=== PATIENT | female | born 1950 | race Two or more races ===

== ENCOUNTER 2019-07-16 11:05 | Outpatient (CLI) | payer OTHER | END 2019-07-16 11:07 | disposition home or self-care (01) | LOC: SONOGRAMA 11:05 → MAMO-SONO 11:15 | DX: N28.1 Cyst of kidney, acquired (principal) ==

== ENCOUNTER 2023-09-17 12:12 | Outpatient (CLI) | payer OTHER | END 2023-09-17 12:16 | disposition home or self-care (01) | LOC: RAD 12:12 | PROVIDERS: ATTEND Orthopaedic Surgery | DX: M25.512 Pain in left shoulder (principal) ==

== ENCOUNTER → 2023-09-30 | Outpatient (CLI) | payer OTHER | END | disposition home or self-care (01) | LOC: RAD 10:18 | PROVIDERS: ATTEND Orthopaedic Surgery | DX: M25.561 Pain in right knee (principal); M25.562 Pain in left knee; M54.2 Cervicalgia; M24.561 Contracture, right knee; Z96.651 Presence of right artificial knee joint ==

== ENCOUNTER → 2023-10-14 11:47 | Outpatient (CLI) | payer OTHER | END | disposition home or self-care (01) | LOC: NUCLEAR 11:47 | PROVIDERS: ATTEND Orthopaedic Surgery | DX: M81.0 Age-related osteoporosis without current pathological fracture (principal) ==

== ENCOUNTER 2024-01-30 09:58 | Outpatient (CLI) | payer OTHER | END 2024-01-30 10:03 | disposition home or self-care (01) | LOC: RAD 09:58 | PROVIDERS: ATTEND Orthopaedic Surgery | DX: M25.561 Pain in right knee (principal); Z96.651 Presence of right artificial knee joint ==

== ENCOUNTER 2024-04-01 11:45 | Outpatient (CLI) | payer OTHER | END 2024-04-01 11:51 | disposition home or self-care (01) | LOC: RAD 11:45 | PROVIDERS: ATTEND Orthopaedic Surgery | DX: M25.561 Pain in right knee (principal); Z96.651 Presence of right artificial knee joint ==

== ENCOUNTER 2024-10-11 07:38 | Outpatient (CLI) | payer OTHER | END 2024-10-11 07:39 | disposition home or self-care (01) | LOC: NUCLEAR 07:38 | PROVIDERS: ATTEND Internal Medicine | DX: I20.9 Angina pectoris, unspecified (principal) | CPT/HCPCS: 78452; 93017; A9500 ==

== ENCOUNTER 2024-12-22 11:31 | Outpatient (CLI) | payer OTHER | END 2024-12-22 11:35 | disposition home or self-care (01) | LOC: RAD 11:31 | PROVIDERS: ATTEND Orthopaedic Surgery | DX: M79.642 Pain in left hand (principal) ==

== ENCOUNTER → 2024-12-31 08:44 | Outpatient (CLI) | payer OTHER ==
[2024-12-31 09:31] LABS: EOS # 0.43 (0.04-0.54); HEMATOCRIT 40.2 % (34.1-44.9); HEMOGLOBIN 13.2 g/dL (11.2-15.7); LYMPH # 2.11 (1.18-3.74); LYMPH % 29.4 % (19.3-53.1); MEAN CORPUSCULAR HEMOGLOBIN 28.5 pg (25.6-32.2); MONO # 0.72 (0.24-0.82); NEUT # 3.83 (1.56-6.13); NEUT % 53.5 % (34.0-71.1); PLATELET COUNT 279 K/uL (163-369); RED BLOOD COUNT 4.63 M/uL (3.93-5.22); RED CELL DISTRIBUTION WIDTH 13.3 % (11.6-14.4)
[2024-12-31 09:37] LABS: URINE APPEARANCE Clear; URINE BILIRRUBIN Negative (NEGATIVE); URINE BLOOD Negative; URINE COLOR Yellow; URINE GLUCOSE Negative (NEGATIVE); URINE KETONE Trace (NEGATIVE); URINE LEUKOCYTE Trace; URINE NITRATE Negative; URINE PROTEIN Trace (NEGATIVE); URINE UROBILINOGEN 0.2 E.U./dl
[2024-12-31 09:38] LABS: URINE BACTERIA 35.4 uL (0.0-1933); URINE EPITHELIAL CELLS 6.3 uL (0.0-38.8); URINE RBC 4.2 uL (0.0-20.8); URINE WBC 22.4 uL (0.0-23.2)
[2024-12-31 09:39] LABS: URINE CAST 0.88 uL (0.0-1.40)
[2024-12-31 09:46] LABS: INR 1.05; PARTIAL THROMBOPLASTIN TIME 25.9 SECONDS (22.0-34.0); PROTHROMBIN TIME 11.4 SECONDS (9.0-11.5)
[2024-12-31 09:53] LABS: COL EPI 108 SECONDS (82-175)
[2024-12-31 10:40] LABS: ALBUMIN 3.8 gm/dL (3.4-5.0); BILIRUBIN TOTAL 0.42 mg/dL (0.3-1.2); CALCIUM 9.4 mg/dL (8.5-10.1); CREATININE SERUM 1.24 mg/dL (0.55-1.02); GFR 42.28; GLOBULINA 3.8 G/DL (2.4-3.5); POTASSIUM 4.31 mEq/L (3.5-5.1); TOTAL PROTEIN 7.6 gm/dL (6.4-8.2)
== END | disposition home or self-care (01) ==
LOC: RAD 08:44
PROVIDERS: ATTEND Orthopaedic Surgery
DX: D64.9 Anemia, unspecified (principal); E88.9 Metabolic disorder, unspecified; D68.8 Other specified coagulation defects; N39.0 Urinary tract infection, site not specified; Z22.322 Carrier or suspected carrier of Methicillin resistant Staphylococcus aureus; E11.8 Type 2 diabetes mellitus with unspecified complications; I10 Essential (primary) hypertension; Z76.89 Persons encountering health services in other specified circumstances

== ENCOUNTER 2024-12-31 10:43 | Outpatient (CLI) | payer OTHER | END 2024-12-31 10:47 | disposition home or self-care (01) | LOC: RAD 10:43 | PROVIDERS: ATTEND Orthopaedic Surgery | DX: M79.651 Pain in right thigh (principal); M79.604 Pain in right leg ==

== ENCOUNTER 2025-04-01 08:02 | Outpatient (CLI) | payer OTHER ==
[2025-04-01 08:52] LABS: BASO % 0.9 % (0.1-1.2); EOS # 0.21 (0.04-0.54); EOS % 2.6 % (0.7-7.0); LYMPH # 1.88 (1.18-3.74); LYMPH % 23.6 % (19.3-53.1); MEAN PLATELET VOLUME 11.50 fl (9.4-12.4); MONO # 0.77 (0.24-0.82); MONO % 9.7 % (4.7-12.5); NEUT # 5.02 (1.56-6.13); NEUT % 63.1 % (34.0-71.1); RED CELL DISTRIBUTION WIDTH 14.3 % (11.6-14.4)
[2025-04-01 09:11] LABS: URINE APPEARANCE Cloudy; URINE BILIRRUBIN Negative (NEGATIVE); URINE BLOOD Trace; URINE COLOR Yellow; URINE KETONE Negative (NEGATIVE); URINE LEUKOCYTE Moderate; URINE NITRATE Negative; URINE PROTEIN Negative (NEGATIVE); URINE UROBILINOGEN 0.2 E.U./dl
[2025-04-01 09:13] LABS: URINE EPITHELIAL CELLS 1.8 uL (0.0-38.8); URINE RBC 7.7 uL (0.0-20.8); URINE WBC 1394.1 uL (0.0-23.2)
[2025-04-01 09:14] LABS: INR 1.03
[2025-04-01 09:31] LABS: URINE BACTERIA > 9821.5 uL (0.0-1933); URINE CAST 0.14 uL (0.0-1.40); URINE GLUCOSE >=1000 MG/DL (NEGATIVE)
[2025-04-01 09:36] LABS: ALT/SGPT 21.0 U/L (12-78); AST/SGOT 16.0 U/L (15-37); BILIRUBIN TOTAL 0.44 mg/dL (0.3-1.2); BUN CREA RATIO 17.0 (7.0-25.0); CREATININE SERUM 1.38 mg/dL (0.55-1.02); GFR 37.37; GLOBULINA 3.3 G/DL (2.4-3.5); GLUCOSE FASTING 134.0 mg/dL (65-100); OSMOLALITY SERUM 289.0 MOSM/KG (275-295)
[2025-04-01 09:37] LABS: COL EPI 90 SECONDS (82-175)
== END 2025-04-01 08:03 | disposition home or self-care (01) ==
LOC: RAD 08:02
PROVIDERS: ATTEND Orthopaedic Surgery
DX: D64.9 Anemia, unspecified (principal); E88.89 Other specified metabolic disorders; D68.8 Other specified coagulation defects; N39.0 Urinary tract infection, site not specified; Z22.322 Carrier or suspected carrier of Methicillin resistant Staphylococcus aureus; E11.9 Type 2 diabetes mellitus without complications; I10 Essential (primary) hypertension; Z76.89 Persons encountering health services in other specified circumstances

== ENCOUNTER 2025-04-21 09:30 | Inpatient (IN) | payer OTHER ==
[~2025-04-21] VITALS: Ht 91.4 cm; Wt 90.7 kg
[2025-04-21] MEDS ORDERED: LANTUS SOL100 UNIT/1 (11:56)
[2025-04-21] MEDS ORDERED: HORIZANT300 MG PO (11:57)
[2025-04-21] MEDS ORDERED: GLIMEPIRIDE2 MG (11:57)
[2025-04-21] MEDS ORDERED: ZESTRIL40 M1 PO (11:57)
[2025-04-21] MEDS ORDERED: XARELTO20 MG (11:58)
[2025-04-21] MEDS ORDERED: ACID REDUCER20 M1 PO (11:59)
[2025-04-21] MEDS ORDERED: SYNTHROID50 MCG PO (11:59)
[2025-04-21] MEDS ORDERED: PRAMIPEXOLE E2.25 MG (12:00)
[2025-04-25] MEDS ORDERED: BUPIVACAINE HCL/MPF 0.5% 30ML VIAL ONE ×2 (06:44→14:05)
[2025-04-25] MEDS ORDERED: ISOPROPYL ALCOHOL 30 ML OUNCE TOP ONE (06:44)
[2025-04-25] MEDS ORDERED: KETOROLAC TROMETHAMINE 60 MG VIAL IM ONE (06:44)
[2025-04-25] MEDS ORDERED: LIDOCAINE HCL 1%/EPINEPHRINE 20ML VIAL IJ ONE (06:44)
[2025-04-25] MEDS ORDERED: VANCOMYCIN HCL 1,000 MG VIAL ONE (06:44)
[2025-04-25] MEDS ORDERED: CEFOXITIN SODIUM 2,000 MG VIAL IV ONE (07:06)
[2025-04-25] MEDS ORDERED: TRANEXAMIC ACID 100MG/1ML (1000MG) AMPUL ONE (07:06)
[2025-04-25] MEDS ORDERED: MORPHINE SULFATE 4 MG/ML CARTRIDGE IV ONE (08:15)
[2025-04-25] MEDS ORDERED: FAMOTIDINE/PF 20 MG/2 ML VIAL ONE (12:28)
[2025-04-25] MEDS ORDERED: PANTOPRAZOLE SODIUM 40 MG TABLET.DR PO SCH (16:51)
[2025-04-25] MEDS ORDERED: ONDANSETRON HCL 2 MG/ML VIAL IV PRN (17:00)
[2025-04-25] MEDS ORDERED: TRAMADOL HCL 50 MG TABLET PO PRN (17:00)
[2025-04-25] MEDS ORDERED: CELECOXIB 200 MG CAPSULE PO SCH (17:00)
[2025-04-25] MEDS ORDERED: ONDANSETRON 4 MG TAB.RAPDIS PO PRN (17:00)
[2025-04-25] MEDS ORDERED: PROMETHAZINE HCL 50 MG/ML AMPUL IM PRN (17:00)
[2025-04-25] MEDS ORDERED: ACETAMINOPHEN 325 MG TABLET PO SCH (17:00)
[2025-04-25] MEDS ORDERED: SODIUM CHLORIDE 0.45 % 1,000 ML IV SCH (17:00)
[2025-04-25] MEDS ORDERED: CEFAZOLIN SODIUM 1,000 MG VIAL IV SCH (17:00)
[2025-04-25] MEDS ORDERED: CEFAZOLIN SODIUM 1,000 MG VIAL ONE (17:18)
[2025-04-25 19:25] VITALS: BP 122/71; O2SAT 96
[2025-04-25] MEDS ORDERED: KETOROLAC TROMETHAMINE 10 MG TABLET PO SCH (21:00)
[2025-04-26 06:26] LABS: BASO % 0.3 % (0.1-1.2); EOS # 0.32 (0.04-0.54); EOS % 2.8 % (0.7-7.0); LYMPH # 1.41 (1.18-3.74); LYMPH % 12.3 % (19.3-53.1); MEAN PLATELET VOLUME 11.70 fl (9.4-12.4); MONO # 1.04 (0.24-0.82); MONO % 9.0 % (4.7-12.5); NEUT # 8.66 (1.56-6.13); NEUT % 75.3 % (34.0-71.1); RED CELL DISTRIBUTION WIDTH 14.1 % (11.6-14.4)
[2025-04-26] MEDS ORDERED: RIVAROXABAN 10 MG TAB PO SCH (09:00)
[2025-04-26 09:39] VITALS: BP 87/52; O2SAT 97
[2025-04-26 10:12] VITALS: BP 89/53; O2SAT 96
[2025-04-26] MEDS ORDERED: 0.9 % SODIUM CHLORIDE 1,000 ML IV SCH (12:00)
[2025-04-26] MEDS ORDERED: MIDODRINE HCL 5 MG TABLET PO STA (14:00)
[2025-04-26] MEDS ORDERED: PATIENTS OWN MEDICATION (MEDICAMENTO EN PISO) IV ONE (15:00)
[2025-04-26 15:20] LABS: BASO % 0.3 % (0.1-1.2); EOS # 0.41 (0.04-0.54); EOS % 3.7 % (0.7-7.0); LYMPH # 1.26 (1.18-3.74); LYMPH % 11.3 % (19.3-53.1); MEAN PLATELET VOLUME 11.80 fl (9.4-12.4); MONO # 0.85 (0.24-0.82); MONO % 7.7 % (4.7-12.5); NEUT # 8.52 (1.56-6.13); NEUT % 76.6 % (34.0-71.1); RED CELL DISTRIBUTION WIDTH 14.1 % (11.6-14.4)
[2025-04-26 16:00] VITALS: BP 96/62; O2SAT 95
[2025-04-26 16:08] LABS: ALT/SGPT 19.0 U/L (12-78); AST/SGOT 31.0 U/L (15-37); BILIRUBIN TOTAL 0.55 mg/dL (0.3-1.2); BUN CREA RATIO 12.0 (7.0-25.0); CREATININE SERUM 2.0 mg/dL (0.55-1.02); GFR 24.35; GLOBULINA 2.1 G/DL (2.4-3.5)
[2025-04-26 16:47] LABS: CKMB 4.4 NG/ML (0.5-3.6); GLUCOSE FASTING 213.0 mg/dL (65-100); OSMOLALITY SERUM 299.0 MOSM/KG (275-295)
[2025-04-26] MEDS ORDERED: MIDODRINE HCL 5 MG TABLET PO SCH (21:00)
[2025-04-26 21:31] LABS: COVID-19 AG NEGATIVE (NEGATIVE)
[2025-04-27 00:20] VITALS: BP 109/54; O2SAT 98
[2025-04-27 02:56] LABS: BASO % 0.4 % (0.1-1.2); EOS # 0.43 (0.04-0.54); EOS % 4.1 % (0.7-7.0); LYMPH # 1.48 (1.18-3.74); LYMPH % 14.1 % (19.3-53.1); MEAN PLATELET VOLUME 11.40 fl (9.4-12.4); MONO # 0.79 (0.24-0.82); MONO % 7.5 % (4.7-12.5); NEUT # 7.73 (1.56-6.13); NEUT % 73.5 % (34.0-71.1); RED CELL DISTRIBUTION WIDTH 14.2 % (11.6-14.4)
[2025-04-27 02:57] LABS: URINE APPEARANCE Clear; URINE BILIRRUBIN Negative (NEGATIVE); URINE BLOOD Small; URINE COLOR Yellow; URINE KETONE Negative (NEGATIVE); URINE LEUKOCYTE Trace; URINE NITRATE Negative; URINE PROTEIN Negative (NEGATIVE); URINE UROBILINOGEN 0.2 E.U./dl
[2025-04-27 03:01] LABS: URINE BACTERIA 35.9 uL (0.0-1933); URINE EPITHELIAL CELLS 21.6 uL (0.0-38.8); URINE RBC 11.5 uL (0.0-20.8); URINE WBC 75.3 uL (0.0-23.2)
[2025-04-27 03:29] LABS: TYPE CELLS SQUAMOUS; URINE CAST 0.29 uL (0.0-1.40); URINE GLUCOSE 500 MG/DL (NEGATIVE)
[2025-04-27 07:05] VITALS: BP 118/74; O2SAT 99
[2025-04-27] MEDS ORDERED: SENNA/DOCUSATE SODIUM 1 TAB TABLET PO SCH (09:00)
[2025-04-27] MEDS ORDERED: PATIENTS OWN MEDICATION (MEDICAMENTO EN PISO) IV NR (14:00)
[2025-04-27 16:51] VITALS: BP 130/75; O2SAT 95
== END 2025-04-27 18:21 | disposition home or self-care (01) | DRG 941 ==
LOC: O/R 04-25 06:00 → SURG 04-25 06:00
PROVIDERS: Internal Medicine; ADMIT Orthopaedic Surgery; ATTEND Orthopaedic Surgery
PROC: 0SWC0JZ Revision of Synthetic Substitute in Right Knee Joint, Open Approach (ICD-10-PCS; principal; 2025-04-25 07:00)
PROC: 4A12X4Z Monitoring of Cardiac Electrical Activity, External Approach (ICD-10-PCS; 2025-04-26)
DX: T84.032D Mechanical loosening of internal right knee prosthetic joint, subsequent encounter (principal); I10 Essential (primary) hypertension

== ENCOUNTER 2025-05-26 14:35 | Outpatient (CLI) | payer OTHER ==
[~2025-05-26 14:35] MED LIST: ACID REDUCER20 M1 PO; GLIMEPIRIDE2 MG; HORIZANT300 MG PO; LANTUS SOL100 UNIT/1; PRAMIPEXOLE E2.25 MG; SYNTHROID50 MCG PO; XARELTO20 MG; ZESTRIL40 M1 PO
== END 2025-05-26 14:42 | disposition home or self-care (01) ==
LOC: RAD 14:35
PROVIDERS: ATTEND Orthopaedic Surgery
DX: M79.604 Pain in right leg (principal)

== ENCOUNTER 2025-07-02 09:46 | Outpatient (CLI) | payer OTHER | END 2025-07-02 09:55 | disposition home or self-care (01) | LOC: RAD 09:46 | PROVIDERS: ATTEND Orthopaedic Surgery | DX: S82.234D Nondisplaced oblique fracture of shaft of right tibia, subsequent encounter for closed fracture with routine healing (principal) ==